=== PATIENT | male | born 1975 | race Hispanic/Latino ===

== ENCOUNTER → 2023-12-15 08:38 | Outpatient (REF) | payer OTHER, SELFPAY ==
[2023-12-15 09:27] LABS: ALT (SGPT) 73 U/L (0-50); AST (SGOT) 47 U/L (17-59); Albumin 4.4 g/dl (3.5-5.0); Alkaline Phosphatase 94 U/L (38-126); Direct Bilirubin 0.5 mg/dl (0.0-0.4); GGTP 34 U/L (15-73); Total Bilirubin 1.1 mg/dl (0.2-1.3)
[2023-12-15 10:25] LABS: Hepatitis B Surface Antigen Negative (Negative)
[2023-12-15 10:42] LABS: Hepatitis C Antibody Negative (Negative)
[2023-12-15 11:26] LABS: Hepatitis A Antibody, Total Positive (Negative)
== END ==
LOC: CLINIC 08:38
PROVIDERS: ATTENDING PHYSICIAN Nurse Practitioner Adult Health
DX: R74.8 Abnormal levels of other serum enzymes (principal)
CPT/HCPCS: 36415; 80076; 82977; 86708; 86803; 87340

== ENCOUNTER → 2024-03-18 07:25 | Outpatient (REF) | payer OTHER, SELFPAY ==
[2024-03-18 09:16] LABS: ALT (SGPT) 40 U/L (0-50); AST (SGOT) 37 U/L (17-59); Albumin 4.5 g/dl (3.5-5.0); Alkaline Phosphatase 90 U/L (38-126); Direct Bilirubin 0.3 mg/dl (0.0-0.4); Total Protein 7.9 g/dl (6.3-8.2)
== END ==
LOC: CLINIC 07:25
PROVIDERS: ATTENDING PHYSICIAN Nurse Practitioner Adult Health
DX: R74.8 Abnormal levels of other serum enzymes (principal)
CPT/HCPCS: 36415; 80076

== ENCOUNTER → 2024-09-16 09:36 | Outpatient (REF) | payer OTHER, SELFPAY ==
[2024-09-16 12:43] LABS: ALT (SGPT) 36 U/L (0-50); AST (SGOT) 28 U/L (17-59); Albumin 4.8 g/dl (3.5-5.0); Alkaline Phosphatase 82 U/L (38-126); Direct Bilirubin 0.2 mg/dl (0.0-0.4); Total Bilirubin 1.1 mg/dl (0.2-1.3); Total Protein 8.1 g/dl (6.3-8.2)
== END ==
LOC: REG 09:36
PROVIDERS: ATTENDING PHYSICIAN Nurse Practitioner Adult Health
DX: R74.8 Abnormal levels of other serum enzymes (principal)
CPT/HCPCS: 36415; 80076

== ENCOUNTER → 2025-01-05 09:20 | Outpatient (REF) | payer OTHER, SELFPAY ==
[2025-01-05 10:44] LABS: Hematocrit 47.1 % (39.0-52.0); Hemoglobin 15.7 g/dL (13.0-18.0); Mean Corp Hgb Conc. 33.3 g/dL (33.0-37.0); Mean Corpuscular Hgb 31.2 pg (27.0-31.0); Mean Corpuscular Volume 93.5 fL (80.0-94.0); Mean Platelet Volume 10.5 fL (7.4-10.4); Platelet Count 288 10^3/uL (130-400); Red Blood Cell Count 5.04 10^6/uL (4.70-6.10); Red Cell Dist. Width 12.4 % (11.5-14.5); White Blood Cell Count 6.9 10^3/uL (4.8-10.8)
[2025-01-05 12:00] LABS: ALT (SGPT) 34 U/L (0-50); AST (SGOT) 29 U/L (17-59); Albumin 4.4 g/dl (3.5-5.0); Alkaline Phosphatase 88 U/L (38-126); Blood Urea Nitrogen 14 mg/dl (9-20); Calcium 9.2 mg/dl (8.4-10.2); Carbon Dioxide 27 mmol/L (22-30); Chloride 103 mmol/L (98-107); Glucose 96 mg/dl (70-99); HDL Cholesterol 39 mg/dl; LDL Cholesterol, Calculated 111 mg/dl; Potassium 4.5 mmol/L (3.5-5.1); Sodium 140 mmol/L (135-145); Total Bilirubin 0.9 mg/dl (0.2-1.3); Total Cholesterol 191 mg/dl (50-199); Total Protein 7.9 g/dl (6.3-8.2); Triglyceride 205 mg/dl (10-149); Very Low Density Lipoprotein 41 mg/dl (0-30); eGFR > 60.00
== END ==
LOC: CLINIC 09:20
PROVIDERS: ATTENDING PHYSICIAN Nurse Practitioner Adult Health
DX: R74.8 Abnormal levels of other serum enzymes (principal); Z00.00 Encounter for general adult medical examination without abnormal findings
CPT/HCPCS: 36415; 80053; 80061; 85027